=== PATIENT | male | born 1940 | race Caucasian/White ===

== ENCOUNTER 2016-03-26 05:10 | Day surgery (SDC) | payer OTHER ==
[2016-03-19 11:29] LABS: HEMATOCRIT 43.1 % (42.0-52.0); MCH 29.8 PG (27-31); MCHC 34.8 g/dL (33-37); MCV 85.5 FL (81-99); MPV 11.2 FL (7.4-10.4); RBC 5.04 XMIL (4.7-6.1)
[2016-03-19 11:59] LABS: AGAP 11; BUN 15 mg/dL (8-22); CALCIUM 9.6 mg/dL (8.8-10.2); CHLORIDE 98 mmol/L (98-107); COSMO 287; POTASSIUM 4.1 mmol/L (3.5-5.1); SODIUM 139 mmol/L (136-145); TCO2 30 mmol/L (25-35)
[2016-03-26] MEDS ORDERED: LR 1,000 ML ONE (05:20)
[2016-03-26] MEDS ORDERED: KEFZOL 2 GM/D5W 50 ML ONE (05:20)
[2016-03-26] MEDS ORDERED: NEOSPORIN G.U. IRRIGANT ONE (06:12)
--- NOTE | 2016-03-26 09:40 | OPERATIVE NOTE ---
PROCEDURE DATE: 03/26/2016 SURGEON: Andrews Donohue MD. 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 PROCEDURE PERFORMED: Cystoscopic examination, bilateral retrograde ureteral pyelograms, cold cup bladder biopsies, transurethral resection of bladder tumor (about 3 square centimeters). ANESTHESIA: General endotracheal. FINDINGS: Cystoscopic exam: Urethra-greater than 25-Jordanian without stricture. Prostate-status post TURP with wide open channel. Bladder-normal ureteral orifices bilaterally with an increased red area and papillary like lesions around the left ureteral orifice. There was a red area on the mid lower posterior wall, a red area above the right ureteral orifice and the right lower posterolateral bladder wall. There was a large red area with calcification like areas and papillary-like lesions on the left dome, about 3 cm in diameter. Left retrograde ureteral pyelogram normal without filling defect. Right retrograde ureteral pyelogram normal without filling defect. Rectal exam reveals a prostate of about 40 g, smooth, symmetric, firm. 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 He has had intravesical BCG treatments. On routine followup, he was noted to have red papillary like lesions. DESCRIPTION OF PROCEDURE: After informed consent was obtained from the patient and him receiving IV antibiotics, he was taken to the main OR cystoscopy room and placed in the supine position. General anesthesia via laryngeal mask was achieved but it was not adequate for the procedure. An endotracheal tube was placed for general endotracheal anesthesia. He was prepped and draped in the usual sterile fashion for cystoscopic exam. A 21-Jordanian cystoscope was passed through the patient's urethra. Prostate,and bladder with findings noted above. An 8-Jordanian cone-tipped catheter was passed through the cystoscope and engaged the right ureteral orifice but contrast would not go up the ureter. A lot of it came back into the bladder. A 5-Jordanian open-ended ureteral catheter was placed and this was advanced to the mid ureter. Contrast was injected. No filling defects were seen in the upper collecting system or in the distal ureter after the open- ended catheter was removed. An 8-Jordanian cone-tipped catheter was placed and contrast was injected in the left ureteral orifice and up into the left kidney. No filling defects were seen on this side either. The 8-Jordanian cone-tipped catheter was removed. The cold cup biopsy forceps were placed and cold cup biopsies were taken from the left ureteral orifice, the lower midline posterior wall above the right ureteral orifice and the dome. These were sent to Pathology in separate containers. The cystoscope was removed. The 25-Jordanian continuous flow resectoscope sheath was placed. The thin Gyrus loop electrode was placed. Hemostasis was achieved from the cold cup biopsy forceps except at the left ureteral orifice and the left dome. The left dome area was resected and the chips were sent to Pathology in 1 container. The left ureteral orifice was resected and its chips were sent to Pathology in its own container. A 0.035 zip wire was passed through the cystoscope, engaged the left ureteral orifice. It was able to be advanced up into the kidney. A 6-Jordanian, 28 cm double-J stent was passed over the zip wire and up into the kidney. The renal end was verified by fluoroscopic exam, bladder end directly visualized. Stent removal string was removed. He tolerated the procedure well. Estimated blood loss was less than 5 mL. The rectal exam was performed. He was taken to the recovery room in good condition.
[2016-03-26] MEDS ORDERED: NORCO-10 ONE (09:56)
[2016-03-26] MEDS ORDERED: DITROPAN ONE ×2 (09:56→10:01)
[2016-03-26] MEDS ORDERED: NEOSTIGMINE ONE (10:54)
[2016-03-26] MEDS ORDERED: NORCURON ONE (10:54)
[2016-03-26] MEDS ORDERED: ZOFRAN ONE (10:54)
[2016-03-26] MEDS ORDERED: ROMAZICON (DOSE) ONE (10:54)
[2016-03-26] MEDS ORDERED: ROBINUL ONE (10:54)
[2016-03-26] MEDS ORDERED: NEO-SYNEPHRINE ONE (10:54)
[2016-03-26] MEDS ORDERED: XYLOCAINE-MPF 2% ONE (10:54)
[2016-03-26] MEDS ORDERED: EPHEDRINE ONE (10:54)
[2016-03-26] MEDS ORDERED: QUELICIN (DOSE) ONE (10:55)
[2016-03-26 11:30] VITALS: BP 158/79
--- NOTE | 2016-03-26 11:33 | Diag Imaging Result Document ---
PROCEDURE NAME: RETROGRADES 2 OR 3 FILMS - 03/26/2016 BILATERAL RETROGRADE PYELOURETEROGRAM: COMPARISON: 11/15/2015. FINDINGS: 29 spot fluoroscopic images were provided, which was performed during retrograde pyeloureterogram and left stent placement by Dr. Andrews Donohue. There are a few tiny outpouchings associated with the right ureter that can also be seen on the previous study. This may indicate pseudodiverticulosis. There is no discrete filling defect identified in either ureter, and there is no discrete stricture. The renal collecting systems do not appear to be significantly dilated. On the final image, there is a newly placed left ureteral stent in the expected position. On the initial few images, the urinary bladder is partially opacified. There is a small filling defect at the left lateral wall that is nonspecific. Please correlate with live fluoroscopic imaging. IMPRESSION: As above. Please correlate with live fluoroscopic imaging. MTDD
[2016-03-26] MEDS ORDERED: DIPRIVAN 1% ONE (12:23)
[2016-03-26] MEDS ORDERED: FENTANYL ONE (12:23)
[2016-03-26] MEDS ORDERED: VERSED ONE (12:23)
== END 2016-03-26 11:37 | disposition home or self-care (01) ==
LOC: OPS 05:10
PROVIDERS: ATTEND Urology
DX: N32.89 Other specified disorders of bladder (principal); Z85.51 Personal history of malignant neoplasm of bladder; K21.9 Gastro-esophageal reflux disease without esophagitis; M19.90 Unspecified osteoarthritis, unspecified site; E78.00 Pure hypercholesterolemia, unspecified; I10 Essential (primary) hypertension; Z95.0 Presence of cardiac pacemaker; Z87.891 Personal history of nicotine dependence; Z23 Encounter for immunization
CPT/HCPCS: 74420; 80048; 82948; 85027; 88305; C2617; J0330; J0690; J2250; J2370; J2405; J3010; J7120; Q9966; J2710